=== PATIENT | female | born 1965 | race Caucasian/White ===

== ENCOUNTER → 2018-08-04 | Outpatient (CLI) | payer OTHER | LOC: MC.RAD 14:04 | DX: Z12.31 Encounter for screening mammogram for malignant neoplasm of breast (principal); N64.89 Other specified disorders of breast ==

== ENCOUNTER → 2018-08-22 | Outpatient (CLI) | payer OTHER | LOC: MC.RAD 08:09 | DX: N60.41 Mammary duct ectasia of right breast (principal); N64.89 Other specified disorders of breast | CPT/HCPCS: G0279 ==

== ENCOUNTER → 2019-08-24 | Outpatient (CLI) | payer OTHER | LOC: MC.RAD 07:46 | DX: Z12.31 Encounter for screening mammogram for malignant neoplasm of breast (principal) ==

== ENCOUNTER → 2020-08-25 | Outpatient (CLI) | payer OTHER | LOC: MC.RAD 07:07 | DX: Z12.31 Encounter for screening mammogram for malignant neoplasm of breast (principal) ==

== ENCOUNTER → 2021-09-01 | Outpatient (CLI) | payer OTHER | LOC: MC.RAD 06:54 | DX: Z12.31 Encounter for screening mammogram for malignant neoplasm of breast (principal) ==

== ENCOUNTER → 2022-10-18 | Outpatient (CLI) | payer OTHER | LOC: MC.RAD 07:14 | DX: Z12.31 Encounter for screening mammogram for malignant neoplasm of breast (principal) ==

== ENCOUNTER → 2023-08-07 | Outpatient (CLI) | payer OTHER | LOC: COL.RAD 06:49 | DX: Z12.2 Encounter for screening for malignant neoplasm of respiratory organs (principal); R91.1 Solitary pulmonary nodule; F17.210 Nicotine dependence, cigarettes, uncomplicated ==

== ENCOUNTER 2023-09-04 06:30 | Outpatient (CLI) | payer OTHER ==
[2023-09-04] VITALS (17 sets, daily range): BP systolic 103–155; BP diastolic 68–99; PULSE 70–88; TEMP 98.1
[~2023-09-04] VITALS: Ht 160 cm; Wt 94.1 kg
[~2023-09-04 06:30] MED LIST: COZAAR100 MG PO; EFFEXOR 3737.5 MG/TA PO; GLUCOPHAGE500 MG/TAB PO; GLUCOTROL 5M5 MG/TAB PO; HCTZ 25MG TAB25 MG PO; ZOCOR 40MG40 MG PO
[2023-09-04] MEDS ORDERED: Midazolam 2 MG/2 ML VIAL IV SCH (08:22)
[2023-09-04] MEDS ORDERED: fentaNYL 50 MCG/ML 2 ML VIAL IV SCH (08:22)
--- NOTE | 2023-09-04 12:07 | NUR ---
PT TOLERATED RECOVERY PERIOD WELL, VS REMAINED WITHIN NORMAL LIMITS AND IV DISCONTINUED UPON DISCHARGE. PT FREE FROM ACUTE CONCERNS AND COMPLAINTS UPON DISCHARGE AND WAS ASSISTED TO MAIN LOBBY VIA WHEELCHAIR. BANDAID ON BACK WAS CLEAN DRY AND INTACT UPON DISCHARGE.
== END 2023-09-04 12:09 | disposition home or self-care (01) ==
LOC: COL.RAD 06:30
DX: R91.8 Other nonspecific abnormal finding of lung field (principal)
CPT/HCPCS: J2250; J3010

== ENCOUNTER → 2023-10-25 | Outpatient (CLI) | payer OTHER | LOC: MC.RAD 06:53 | DX: Z12.31 Encounter for screening mammogram for malignant neoplasm of breast (principal) ==